=== PATIENT | female | born 1985 | race Caucasian/White ===

== ENCOUNTER 2016-12-10 10:52 | Observation (INO) | payer BC ==
[~2016-12-10] VITALS: Ht 165.1 cm; Wt 102.5 kg
[2016-12-10] MEDS ORDERED: ONDANSETRON INJ 2 MG/ML 2 ML VIAL IV STA (12:32)
[2016-12-10] MEDS ORDERED: SODIUM CHLORIDE 0.9% 1000ML 1,000 ML IV STA (12:32)
[2016-12-10] MEDS: MoRPHine SULFATE 4 MG/ML 1 ML CARP\\VIAL IV PRN ×3 (12:43→18:01)
[2016-12-10 12:47] LABS: BUN/CREATININE RATIO 13.7 (10-20); CALCIUM 8.9 mg/dl (8.5-10.1); CREATININE 0.86 mg/dl (0.60-1.20)
[2016-12-10 12:51] LABS: BASO % 0.3 %; BASO ABS # 0.04 K/uL (0-0.2); COMPLETE YES; EOS % 1.4 %; HEMATOCRIT 42.9 % (37-47); IG% 0.3 %; LYMPH % 11.6 %; LYMPH ABS # 1.52 K/uL (1.2-3.4); MEAN CORPUSCULAR HEMOGLOBIN 30.9 pg (25-34); MEAN CORPUSCULAR HGB CONC 34.7 g/dl (32-36); MEAN PLATELET VOLUME 12.9 fL (7.4-10.4); MONO % 5.9 %; NEUT % 80.5 %; PLATELET COUNT 211 K/uL (130-400); RED BLOOD COUNT 4.82 M/uL (4.2-5.4); WHITE BLOOD COUNT 13.12 K/uL (4.8-10.8)
[2016-12-10 13:01] LABS: URINE APPEARANCE CLEAR (CLEAR); URINE BILIRUBIN NEG (NEG); URINE COLOR YELLOW; URINE NITRITE NEG (NEG); URINE PH 6.5 (4.5-7.5); URINE SPECIFIC GRAVITY 1.014 (1.000-1.030); UROBILINOGEN NEG (NEG)
[2016-12-10 13:02] LABS: MANUAL MICROSCOPIC REQUIRED? NO; REVIEW REQ? NO
--- NOTE | 2016-12-10 13:06 | DIAGNOSTIC IMAGING REPORT ---
CHEST 2 VIEWS ROUTINE CLINICAL HISTORY: ABDOMINAL PAIN/GI pain COMPARISON STUDY: No previous studies for comparison. FINDINGS: The bones soft tissues and hemidiaphragms are normal. The cardiomediastinal silhouette is normal. The lungs are clear. The pulmonary vasculature is normal. IMPRESSION: Negative chest. Electronically signed by: Joe Causey M.D. 12/10/2016 1:05 PM Dictated Date/Time: 12/10/2016 1:04 PM
--- NOTE | 2016-12-10 14:33 | DIAGNOSTIC IMAGING REPORT ---
BILIARY ULTRASOUND CLINICAL HISTORY: Upper abdominal pain COMPARISON STUDY: No previous studies for comparison. FINDINGS: The pancreas appears sonographically normal. The liver appears sonographically normal. There is no ductal dilatation. The common bile duct measures 4 mm. There is no right-sided hydronephrosis. There is minimal sludge in the gallbladder. No shadowing calculi are evident. IMPRESSION: Minimal sludge within the gallbladder. No shadowing calculi identified. No evidence of ductal dilatation. Ultrasonographically normal pancreas and liver. Electronically signed by: Elias Weir M.D. 12/10/2016 2:32 PM Dictated Date/Time: 12/10/2016 2:31 PM
[2016-12-10] MEDS ORDERED: OPTIRAY 320 IV PRN (17:15)
--- NOTE | 2016-12-10 17:50 | DIAGNOSTIC IMAGING REPORT ---
ABDOMEN AND PELVIS CT WITH IV AND ORAL CONTRAST CT DOSE: 889.83 mGy.cm HISTORY: Bilateral upper abdominal pain. TECHNIQUE: Multiaxial CT images of the abdomen and pelvis were performed following the use of intravenous and oral contrast. COMPARISON STUDY: None. FINDINGS: The lung bases are clear. There is an 8 mm hypodense lesion within the left hepatic lobe. This is too small to characterize. The gallbladder, spleen, adrenal glands, pancreas, left kidney are unremarkable. There is a 7 mm hypodense lesion within the right kidney which is also too small to characterize. No hydronephrosis. Prominent ileocolic lymph nodes which are likely reactive. The uterus, ovaries, and bladder are unremarkable. There is a foreign object within the vagina which may represent a contraceptive device. No evidence for bowel obstruction. There is a thick-walled fluid-filled appendix with periappendiceal fat stranding. Cecal base is also slightly thickened. The appendix measures up to 11 mm. No perforation or abscess. This is consistent with acute appendicitis. IMPRESSION: Acute appendicitis. Electronically signed by: Jean Chatman M.D. 12/10/2016 5:48 PM Dictated Date/Time: 12/10/2016 5:45 PM
[2016-12-10] MEDS ORDERED: CEFOXITIN SOD 2 GM VIAL IV STA (18:37)
[2016-12-10] MEDS ORDERED: MoRPHine SULFATE 4 MG/ML 1 ML CARP\\VIAL IV PRN ×2 (18:45→21:15)
[2016-12-10] MEDS ORDERED: ONDANSETRON INJ 2 MG/ML 2 ML VIAL IV PRN ×3 (18:45→21:30)
[2016-12-10] MEDS ORDERED: LACTATED RINGER'S 1000ML 1,000 ML IV SCH (18:45)
[2016-12-10] MEDS ORDERED: LIDOCAINE/EPINEPHRINE 1% 20 ML VIAL ONE (18:46)
--- NOTE | 2016-12-10 18:49 | History & Physical Bridge Note ---
H&P Re-Evaluation Bridge Note: I have examined the patient, reviewed the History & Physical and in the interval since the performance of the History & Physical I have noted the following changes of clinical significance: No changes noted h and p dictated stat line 100 at 6;45 pm in ER dx acute appendicitis plan lap appendectomy possible open
--- NOTE | 2016-12-10 19:04 | HISTORY & PHYSICAL EXAMINATION ---
DATE OF ADMISSION: 12/10/2016 Seen in the Emergency Room at 6:30 in the evening on 12/10/2016. SUMMARY: I was called by the ER physician by Prem Tolbert for the patient that had acute appendicitis. This is a 31-year-old female who presented to the Emergency Room with a 24-hour history lower abdominal pain that started in the upper abdomen transverse along the umbilical area bilaterally was evaluated in the Emergency Room and was thought the patient may have some findings of acute cholecystitis. An ultrasound was obtained which showed maybe some sludge. The patient was reevaluated later and was found by CAT scan to have acute appendicitis. PHYSICAL EXAMINATION: VITAL SIGNS: When she came in at 11:00 this morning her temperature was 37.2, her pulse 79, respirations 18, blood pressure 146/86, the last was obtained about 5:45 with no temperature was repeated, but the pulse was 67, respirations 20, blood pressure 140/80 O2 sats 97% on room air. GENERAL: As I see her now, the patient is resting comfortably. She is a little upset for what is going on, regarding the pathology. She is very cooperative. HEENT: Head: Normocephalic. Eyes: PERRLA. The sclerae are nonicteric, but there is conjunctival injection. Mouth: Oropharyngeal area is free of any inflammation in the peritonsillar area. NECK: No neck masses appreciated. HEART: Normal sinus LUNGS: Clear. ABDOMEN: She has exquisite tenderness and rebound in her right lower quadrant. The rest of the abdomen, she has some positive guarding. LABORATORY DAVIDSON: Showed her white count 13.12; she does have a significant left shift. Chemistries were all normal. Lipase was 67. IMAGING DATA: A CAT scan imaging that was obtained and showed the cecal base is slightly thickened. The appendix measured about 11 mm consistent with acute appendicitis. There is no abscess formation. A chest x-ray was also obtained which was negative and an ultrasound of the gallbladder which was obtained showed minimal sludge but no evidence of acute cholecystitis. PAST MEDICAL HISTORY: Pretty much unremarkable. She enjoys good health. SOCIAL HISTORY: She is a nonsmoker or drinker. MEDICATIONS: She takes no routine medicines. IMPRESSION AND PLAN: At this point, plan is to proceed with laparoscopic appendectomy, possible open. Risks and complications were explained to the patient including bleeding, infection, possible converting to an open procedure and she would like to proceed accordingly. We are planning to do as soon as anesthesia gets here and evaluates the patient and also they are finishing up another case in the OR that may be within the hour. ALFREDO
[2016-12-10] MEDS ORDERED: PROPOFOL IV EMULSION 10 MG/ML 20 ML VIAL IV ONE (19:09)
[2016-12-10] MEDS ORDERED: MIDAZOLAM HCL 1 MG/ML 2ML VIAL ONE (19:10)
[2016-12-10] MEDS ORDERED: ROCURONIUM BROMIDE 10 MG/ML 5 ML VIAL ONE (19:11)
[2016-12-10] MEDS ORDERED: FENTANYL CITRATE INJ 50 MCG/1 ML 2 ML VIAL ONE ×4 (19:11→21:11)
[2016-12-10] MEDS ORDERED: LIDOCAINE HCL 2% 2 ML VIAL (20MG/ML) ONE (19:11)
[2016-12-10] MEDS ORDERED: ONDANSETRON INJ 2 MG/ML 2 ML VIAL ONE (19:11)
[2016-12-10] MEDS ORDERED: DEXAMETHASONE SOD INJ 4 MG/ML VIAL ONE (19:12)
[2016-12-10] MEDS ORDERED: NEOSTIGMINE METHYLSULFATE 5 MG/5 ML SYR ONE (19:12)
[2016-12-10] MEDS ORDERED: GLYCOPYRROLATE INJ 0.2 MG/ML VIAL ONE (19:12)
[2016-12-10] MEDS ORDERED: IV FLUIDS COMPLETED PRN (19:30)
[2016-12-10] MEDS ORDERED: CEFOXITIN IV 2,000 MG in DEXTROSE 5% 50ML 50 ML IV ONE (19:45)
--- NOTE | 2016-12-10 20:50 | EMERGENCY ROOM VISIT NOTE ---
ED Visit Note First contact with patient: 12:13 Chief Complaint: Upper abdominal pain. History of Present Illness: Ms. Pop is a 31 year-old white female who ambulates into the ED complaining of upper abdominal pain. Historically patient reports no significant past medical history. Patient reports a acute onset of upper abdominal pain that started approximately 10 ago. Since that time the pain has been constant but has waxed and waned in intensity. The pain is currently described as burning. She places an arc starting in the mid right quadrant up into the upper quadrant through the epigastric area and into the left upper quadrant as the area for pain, but does report it is much more prominent on the right than the left. The pain is nonradiating. She rates her discomfort 8/10. She has not identified any aggravating factors related to the pain. She has taken ibuprofen which gave her minimal relief of her discomfort. Associated with her pain she has been nauseated with one episode of vomiting last evening at the onset of her pain. Patient denies fevers, chills, sweats, skin eruptions, skin color changes, upper respiratory tract symptoms, shortness of breath, chest pain, diarrhea, constipation, rectal bleeding, black/tarry stools, urinary symptoms, hematuria, vaginal bleeding, vaginal discharge, back/flank pain. Review of Systems: As noted above in history of present illness. All body systems were reviewed and found to be negative as noted above. Past Medical History: Colitis, recurrent epistaxis, unspecified urinary problem. Current Medications: Patient denies. Allergies to Medications: Patient denies. Social History: Patient is currently employed; she feels safe in her home environment; she admits to tobacco and alcohol use. Physical Examination: Vital Signs: Date Time Temp Pulse Resp B/P Pulse Ox O2 Delivery O2 Flow Rate FiO2 12/10/16 19:28 37 84 16 122/80 97 Room Air 12/10/16 19:05 86 20 122/87 98 Room Air 12/10/16 17:45 67 20 114/73 97 Room Air 12/10/16 15:30 74 20 124/74 99 Room Air 12/10/16 13:47 63 18 108/70 97 Room Air 12/10/16 12:46 82 16 106/70 100 Room Air 12/10/16 11:02 37.2 79 18 149/86 98 Room Air GENERAL: 31-year-old female in moderate distress due to pain, nontoxic-appearing , afebrile and hemodynamically stable. NEUROLOGICAL: Awake, alert and oriented to person, place and time. Answering questions appropriately and following commands. Normal gait. Good hand eye coordination. SKIN: Warm, dry and pink. No soft tissue eruptions or trauma noted. HEENT: Atraumatic and normocephalic. PERRLA. Sclera white and conjunctiva pink. Oral cavity moist and pink. Pharynx is nonerythematous or edematous. Speech normal. No lymphadenopathy. Trachea midline. No jugular venous distention. BACK: No tenderness over the bony spine. No CVA tenderness. THORAX: Lungs sounds are clear to auscultation and equal bilaterally with symmetrical chest wall. No wheezing, rales or rhonchi. No crepitus, tenderness , subcutaneous air or deformities noted. HEART: Regular rate and rhythm. No gallops, rubs or murmurs are appreciated. ABDOMEN: Flat and soft with moderate tenderness in the right upper quadrant, minimal tenderness in the left upper quadrant and moderate tenderness in the right lower quadrant. There was minimal guarding in the right upper and right lower quadrants on palpation. Positive bowel sounds in all quadrants. No rigidity or organomegaly. EXTREMITIES: Moves all extremities well on command and with purpose. All distal neurovascular statuses are intact and equal bilaterally. ED Course: Patient is assessed as noted above. Laboratory Testing: Test 12/10/16 11:15 12/10/16 12:50 Range/Units White Blood Count 13.12 4.8-10.8 K/uL Red Blood Count 4.82 4.2-5.4 M/uL Hemoglobin 14.9 12.0-16.0 g/dL Hematocrit 42.9 37-47 % Mean Corpuscular Volume 89.0 80-100 fL Mean Corpuscular Hemoglobin 30.9 25-34 pg Mean Corpuscular Hemoglobin Concent 34.7 32-36 g/dl Platelet Count 211 130-400 K/uL Mean Platelet Volume 12.9 7.4-10.4 fL Neutrophils (%) (Auto) 80.5 % Lymphocytes (%) (Auto) 11.6 % Monocytes (%) (Auto) 5.9 % Eosinophils (%) (Auto) 1.4 % Basophils (%) (Auto) 0.3 % Neutrophils # (Auto) 10.56 1.4-6.5 K/uL Lymphocytes # (Auto) 1.52 1.2-3.4 K/uL Monocytes # (Auto) 0.78 0.11-0.59 K/uL Eosinophils # (Auto) 0.18 0-0.5 K/uL Basophils # (Auto) 0.04 0-0.2 K/uL RDW Standard Deviation 42.7 36.4-46.3 fL RDW Coefficient of Variation 13.1 11.5-14.5 % Immature Granulocyte % (Auto) 0.3 % Immature Granulocyte # (Auto) 0.04 0.00-0.02 K/uL Sodium Level 140 136-145 mmol/L Potassium Level 4.0 3.5-5.1 mmol/L Chloride Level 106 98-107 mmol/L Carbon Dioxide Level 27 21-32 mmol/L Anion Gap 7.0 3-11 mmol/L Blood Urea Nitrogen 12 7-18 mg/dl Creatinine 0.86 0.60-1.20 mg/dl Est Creatinine Clear Calc Drug Dose 114.6 ml/min Estimated GFR () 105.8 Estimated GFR (Non- 91.3 BUN/Creatinine Ratio 13.7 10-20 Random Glucose 92 70-99 mg/dl Calcium Level 8.9 8.5-10.1 mg/dl Total Bilirubin 0.8 0.2-1 mg/dl Direct Bilirubin 0.1 0-0.2 mg/dl Aspartate Amino Transf (AST/SGOT) 18 15-37 U/L Alanine Aminotransferase (ALT/SGPT) 21 12-78 U/L Alkaline Phosphatase 55 45-117 U/L Total Protein 7.3 6.4-8.2 gm/dl Albumin 3.8 3.4-5.0 gm/dl Lipase 67 73-393 U/L Urine Color YELLOW Urine Appearance CLEAR CLEAR Urine pH 6.5 4.5-7.5 Urine Specific [place] 1.014 1.000-1.030 Urine Protein NEG NEG Urine Glucose (UA) NEG NEG Urine Ketones TRACE NEG Urine Occult Blood NEG NEG Urine Nitrite NEG NEG Urine Bilirubin NEG NEG Urine Urobilinogen NEG NEG Urine Leukocyte Esterase NEG NEG Urine Test NEG NEG Gallbladder Ultrasound: Was reviewed by myself and read by the radiologist shows minimal sludge within the gallbladder but no shadowing calculi, ductal dilatation. Normal-appearing pancreas and liver. Chest X-Rays: Were read by myself and radiologist showing no acute infiltrates, effusions or pneumothorax. Normal heart silhouette and bony anatomy. No free air under the diaphragm. No previous to compare. Contrast Abdominal/Pelvic CT: Was reviewed by myself and read by the radiologist showing thick walled fluid-filled appendix with fat stranding and slight thickening of the cecal base consistent with an acute appendicitis. No perforation or abscess. Radiological Testing: Patient was hydrated with normal saline and she received a total of 8 mg of morphine IV for pain and 4 mg of Zofran IV. Patient was reassessed multiple times during her stay in the emergency department. Patient's case was reviewed with Dr. Harris; we agreed on diagnostic approach, treatment, disposition and plan. Patient's case was consulted with case management and Dr. Henriquez, general surgery, for definitive care and treatment. Patient was educated about tonight's findings. Clinical Impression: Acute appendicitis. Bilateral upper quadrant abdominal pain. Decision-Making: Initially my differential diagnosis I considered hepatitis, pancreatitis, cholecystitis, colitis, constipation, pyelonephritis, appendicitis , ectopic , ovarian cyst rupture. Disposition and Plan: Patient's care transferred to the general surgeon for appendectomy and further care. She has noticed for final disposition and plan.
--- NOTE | 2016-12-10 21:05 | [facility] Post Operative Brief Note ---
Immediate Operative Summary Operative Date Dec 10, 2016. Pre-Operative Diagnosis Acute appendicitis Post-Operative Diagnosis Same as pre-operative Procedure(s) Performed Laparoscopic appendectomy Surgeon Dr. Santi Henriquez MD Director Of Student Aid Surgeon(s) None Estimated Blood Loss 3cc Findings acute non ruptured Specimens appendix
[2016-12-10] MEDS ORDERED: NURSING VERBAL MED ORDER ONE (21:15)
[2016-12-10] MEDS ORDERED: MEPERIDINE HCL 25 MG/ML CARP IV PRN (21:30)
[2016-12-10] MEDS ORDERED: LABETALOL HCL IV 5 MG/ML 20ML IV PRN (21:30)
[2016-12-10] MEDS ORDERED: FENTANYL CITRATE INJ 50 MCG/1 ML 2 ML VIAL IV PRN (21:30)
[2016-12-10] MEDS ORDERED: ATROPINE SULFATE 0.1 MG/ML 5ML SYR IV PRN (21:30)
[2016-12-10] MEDS ORDERED: HYDROmorphone INJ 1 MG/ML SYR IV PRN (21:30)
[2016-12-10] MEDS ORDERED: EpHEDrine SULFATE INJ 50 MG/ML AMP IV PRN (21:30)
[2016-12-10] MEDS: LACTATED RINGER'S 1000ML 1,000 ML IV SCH (22:26)
[2016-12-10 22:30] VITALS: BP 105/69; PULSE 60; TEMP 37.2; O2SAT 98; Ht 165.1 cm; Wt 102.5 kg
[2016-12-10 22:39] VITALS: BP 108/69; PULSE 66; TEMP 36.6; O2SAT 97
[2016-12-10 22:45] VITALS: O2SAT 98
[2016-12-10 23:10] VITALS: BP 103/67; PULSE 65; TEMP 36.9; O2SAT 98
[2016-12-10] MEDS: OXYCODONE/ACETAMINOPHEN 5-325 TAB PO PRN (23:30)
[2016-12-11 00:08] VITALS: BP 123/77; PULSE 67; TEMP 36.9; O2SAT 95
[2016-12-11] MEDS: CEFOXITIN IV 2,000 MG in DEXTROSE 5% 50ML 50 ML IV SCH ×2 (00:31→06:28)
[2016-12-11 01:09] VITALS: BP 114/71; PULSE 62; TEMP 37.1; O2SAT 93
[2016-12-11 02:54] VITALS: BP 107/66; PULSE 75; TEMP 37.1; O2SAT 94
[2016-12-11] MEDS: LACTATED RINGER'S 1000ML 1,000 ML IV SCH (05:09)
--- NOTE | 2016-12-11 07:26 | Anesthesiology Progress Note ---
Anesthesia Post Op Note Date & Time Dec 11, 2016 at 07:25 Vital Signs Pain Intensity: 6.0 Vital Signs Past 12 Hours Date Time Temp Pulse Resp B/P Pulse Ox O2 Delivery O2 Flow Rate FiO2 12/11/16 02:54 37.1 75 18 107/66 94 Room Air 12/11/16 01:09 37.1 62 16 114/71 93 Room Air 12/11/16 00:08 36.9 67 17 123/77 95 Room Air 12/10/16 23:34 Room Air 12/10/16 23:10 36.9 65 16 103/67 98 Nasal Cannula 2.0 12/10/16 22:45 98 Nasal Cannula 2.0 12/10/16 22:39 36.6 66 16 108/69 97 Nasal Cannula 2.0 12/10/16 22:30 37.2 60 16 105/69 98 Nasal Cannula 2.0 12/10/16 22:00 55 17 117/72 98 Nasal Cannula 2 12/10/16 21:50 36.0 72 24 120/71 98 Nasal Cannula 2 12/10/16 21:40 51 17 125/78 99 Nasal Cannula 2 12/10/16 21:30 66 14 120/85 98 Nasal Cannula 2 12/10/16 21:21 72 17 147/98 98 Nasal Cannula 2 12/10/16 21:14 36.2 102 25 152/98 97 Mask 10 12/10/16 19:28 37 84 16 122/80 97 Room Air Notes Mental Status: alert / awake / arousable, participated in evaluation Pt Amnestic to Procedure: Yes Nausea / Vomiting: adequately controlled Pain: adequately controlled Airway Patency, RR, SpO2: stable & adequate BP & HR: stable & adequate Hydration State: stable & adequate Anesthetic Complications: no major complications apparent
--- NOTE | 2016-12-11 07:41 | OPERATIVE REPORT ---
DATE OF OPERATION: 12/10/2016 SURGEON: Dr. Henriquez. PREOPERATIVE DIAGNOSIS: Acute appendicitis. POSTOPERATIVE DIAGNOSIS: Same, nonruptured. PROCEDURE: Laparoscopic appendectomy. SUMMARY: After induction of general endotracheal anesthesia, the patient's abdomen was prepped with Betadine solution and properly draped. We made a small incision supraumbilically sufficient enough to place a Veress needle followed by CO2 and with this Veress needle we were preperitoneally. I was not able to get a good insufflation therefore we used Reymundo clamps to elevate the fascia and at this point I repositioned the Veress needle that we were able to get good insufflation with the intraabdominal pressure to about 7-8, we placed a 5 mm trocar without difficulty followed by the scope. Point of entry inspected and no injury identified and further visualized that we probably had some insufflation in the preperitoneal space. At this point, the patient was placed on the left side. We placed a 5 mm right upper quadrant port with preemptive analgesia 1% Xylocaine. We had the nurse in the OR try to enlarge the screen since we were only focused on a small visual field. Once this was performed, we were able to visualize more of the operative field. We then placed a 5 mm left lower quadrant after changing the 5 mm umbilical area to the 10 mm trocar. The 5 mm was then used in the left lower quadrant. The appendix was easily appreciated. The mesoappendix was inflamed and thickened and also the appendix itself seemed to be quite inflamed, nonruptured, and it seemed to be extending almost to the base of the cecum. We elevated it up. At this point we created a window between the mesoappendix and the base towards the cecum and then used a blue stapler to fire across the mesentery. Hemostasis was satisfactory. We could control a few small areas along the staple line with electrocautery about 25. Of note, we will paid specific attention to avoid the terminal ileum in this area. Also of note was that the appendix as stated was quite inflamed almost to the base of the cecum. We originally placed a 5 mm blue load for the base of the appendix, but this was too small because we wanted to take part of the cecum with it and secure the staple line. Therefore, we changed to a 60 and once we fired the load were secured as far as the staple line and bleeding was very minimal that we just cauterized minimally. We irrigated the area. Hemostasis was satisfactory. We then placed the appendix in an Endopouch and taken out through the umbilical port. After we were making sure the two trocars had no evidence of any active bleeding as we were pulled out from the abdominal wall. We irrigated the right lower quadrant and placed the patient in reverse Trendelenburg position, suctioned out the pelvis. Once the appendix was removed we then closed the fascia with 0 Vicryl suture for the umbilical area, fascial stitches with 4-0 Monocryl. Steri-Strips applied. The procedure was tolerated well by the patient. Estimated blood loss approximately 3 mL. The patient was taken to recovery room in good condition. I attest to the content of the Intraoperative Record and any orders documented therein. Any exceptions are noted below. MTDD
[2016-12-11 07:56] LABS: BASO % 0.1 %; BASO ABS # 0.01 K/uL (0-0.2); COMPLETE YES; HEMATOCRIT 38.7 % (37-47); IG% 0.1 %; LYMPH % 8.6 %; LYMPH ABS # 0.62 K/uL (1.2-3.4); MEAN CELL VOLUME 89.2 fL (80-100); MEAN CORPUSCULAR HEMOGLOBIN 30.2 pg (25-34); MEAN CORPUSCULAR HGB CONC 33.9 g/dl (32-36); MEAN PLATELET VOLUME 12.5 fL (7.4-10.4); MONO % 2.1 %; NEUT % 89.1 %; PLATELET COUNT 199 K/uL (130-400); RED BLOOD COUNT 4.34 M/uL (4.2-5.4)
[2016-12-11 07:58] VITALS: BP 116/72; PULSE 69; TEMP 36.9; O2SAT 93
[2016-12-11] MEDS: OXYCODONE/ACETAMINOPHEN 5-325 TAB PO PRN ×2 (08:18→12:37)
[2016-12-11 08:36] VITALS: O2SAT 93
--- NOTE | 2016-12-11 11:27 | Surgery Progress Note ---
Surgery Progress Note Date of Service Dec 11, 2016. Subjective Post OP Day: 1 + diet (regular), + feeling well, + pain controlled Objective Vital Signs: Date Time Temp Pulse Resp B/P Pulse Ox O2 Delivery O2 Flow Rate FiO2 12/11/16 08:36 93 Room Air 12/11/16 08:00 Room Air 12/11/16 07:58 36.9 69 17 116/72 93 Room Air 12/11/16 02:54 37.1 75 18 107/66 94 Room Air 12/11/16 01:09 37.1 62 16 114/71 93 Room Air 12/11/16 00:08 36.9 67 17 123/77 95 Room Air 12/10/16 23:34 Room Air 12/10/16 23:10 36.9 65 16 103/67 98 Nasal Cannula 2.0 12/10/16 22:45 98 Nasal Cannula 2.0 12/10/16 22:39 36.6 66 16 108/69 97 Nasal Cannula 2.0 12/10/16 22:30 37.2 60 16 105/69 98 Nasal Cannula 2.0 12/10/16 22:00 55 17 117/72 98 Nasal Cannula 2 12/10/16 21:50 36.0 72 24 120/71 98 Nasal Cannula 2 12/10/16 21:40 51 17 125/78 99 Nasal Cannula 2 12/10/16 21:30 66 14 120/85 98 Nasal Cannula 2 12/10/16 21:21 72 17 147/98 98 Nasal Cannula 2 12/10/16 21:14 36.2 102 25 152/98 97 Mask 10 12/10/16 19:28 37 84 16 122/80 97 Room Air 12/10/16 19:05 86 20 122/87 98 Room Air 12/10/16 17:45 67 20 114/73 97 Room Air 12/10/16 15:30 74 20 124/74 99 Room Air 12/10/16 13:47 63 18 108/70 97 Room Air 12/10/16 12:46 82 16 106/70 100 Room Air Abdomen: non distended, soft Incision(s): clean, dry Laboratory Results: Results Past 24 Hours Test 12/10/16 12:50 12/11/16 07:37 Range/Units Urine Color YELLOW Urine Appearance CLEAR CLEAR Urine pH 6.5 4.5-7.5 Urine Specific [place] 1.014 1.000-1.030 Urine Protein NEG NEG Urine Glucose (UA) NEG NEG Urine Ketones TRACE NEG Urine Occult Blood NEG NEG Urine Nitrite NEG NEG Urine Bilirubin NEG NEG Urine Urobilinogen NEG NEG Urine Leukocyte Esterase NEG NEG Urine Test NEG NEG White Blood Count 7.20 4.8-10.8 K/uL Red Blood Count 4.34 4.2-5.4 M/uL Hemoglobin 13.1 12.0-16.0 g/dL Hematocrit 38.7 37-47 % Mean Corpuscular Volume 89.2 80-100 fL Mean Corpuscular Hemoglobin 30.2 25-34 pg Mean Corpuscular Hemoglobin Concent 33.9 32-36 g/dl Platelet Count 199 130-400 K/uL Mean Platelet Volume 12.5 7.4-10.4 fL Neutrophils (%) (Auto) 89.1 % Lymphocytes (%) (Auto) 8.6 % Monocytes (%) (Auto) 2.1 % Eosinophils (%) (Auto) 0.0 % Basophils (%) (Auto) 0.1 % Neutrophils # (Auto) 6.41 1.4-6.5 K/uL Lymphocytes # (Auto) 0.62 1.2-3.4 K/uL Monocytes # (Auto) 0.15 0.11-0.59 K/uL Eosinophils # (Auto) 0.00 0-0.5 K/uL Basophils # (Auto) 0.01 0-0.2 K/uL RDW Standard Deviation 42.9 36.4-46.3 fL RDW Coefficient of Variation 13.1 11.5-14.5 % Immature Granulocyte % (Auto) 0.1 % Immature Granulocyte # (Auto) 0.01 0.00-0.02 K/uL Assessment & Plan s/p lap appy tolerating diet and Percocet ok for discharge
[2016-12-11] MEDS ORDERED: OXYC-57 PO (11:28)
--- NOTE | 2016-12-11 11:31 | Discharge Instructions ---
Discharge Instructions Admission Reason for Admission: Acute Appendicitis Discharge Discharge Diagnosis / Problem: laparoscopic appendectomy Discharge Goals Goal(s): Decrease discomfort Activity Recommendations Activity Limitations: as noted below Lifting Limitations: no more than 10 pounds (for 1 week) Shower/Bathe: no limitations (ok to shower) Driving or Machine Use: resume 3 days after discharge . Instructions / Follow-Up Instructions / Follow-Up Dr. Henriquez in 7-10 days, call [phone] to schedule appt or with any questions, [facility] Current Hospital Diet Patient's current hospital diet: Regular Diet Discharge Diet Recommended Diet: Regular Diet Procedures Procedures Performed: Laparoscopic appendectomy Pending Studies Studies pending at discharge: no Medical Emergencies . Who to Call and When: Medical Emergencies: If at any time you feel your situation is an emergency, please call 911 immediately. . Non-Emergent Contact Non-Emergency issues call your: Surgeon Call Non-Emergent contact if: you have a fever, temperature is above 101.5, your pain is not controlled, your pain is worsening, wound has increased redness . "Provider Documentation" section prepared by Yeison Gaviria. VTE Core Measure Inpt VTE Proph given/why not?: SCD's
[2016-12-11 12:59] VITALS: BP 116/72; PULSE 69; TEMP 36.9; O2SAT 93
--- NOTE | 2016-12-11 14:33 | DISCHARGE SUMMARY ---
PRIMARY DISCHARGE DIAGNOSIS: Acute appendicitis. PROCEDURE PERFORMED: Laparoscopic appendectomy. HOSPITAL COURSE: The patient is a 31-year-old female with intermittent abdominal pain, presented to the Emergency Department with persistent pain for 24 hours. Gallbladder ultrasound showed some sludge, although CAT scan revealed an 11 mm thick-walled and fluid filled appendix consistent with acute appendicitis. She was taken to the operating room that evening for laparoscopic appendectomy. Procedure was well tolerated. She was transferred to the surgical floor. IV Mefoxin was continued perioperatively. In the morning postoperative day 1, she was tolerating regular diet and oral analgesics. She was stable for discharge later in the afternoon. Her abdomen was soft. Incisions were dry. DISCHARGE INSTRUCTIONS: Discharge home. Follow up with Dr. Henriquez in 1 week. DISCHARGE MEDICATIONS: Percocet 1-2 tablets every 4 hours as needed.
== END 2016-12-11 13:38 | disposition home or self-care (01) ==
LOC: ENRESERVTM → ENRESERVDT → C.EDB 10:54 → C.MSW 18:42
PROVIDERS: ADMIT Surgery; ATTEND Surgery
DX: K35.80 Unspecified acute appendicitis (principal)

== ENCOUNTER → 2017-11-06 | Outpatient (CLI) | payer OTHER | END | disposition home or self-care (01) | LOC: C.PAPS 11:56 | PROVIDERS: ATTEND Obstetrics & Gynecology | DX: Z01.419 Encounter for gynecological examination (general) (routine) without abnormal findings (principal) ==